=== PATIENT | male | born 1985 | race Caucasian/White ===

== ENCOUNTER 2019-08-11 05:46 | Day surgery (SDC) | payer OTHER ==
[2019-08-08 10:07] VITALS: BMI 30.1
[2019-08-11] MEDS ORDERED: BUPIVACAINE HCL/PF 2.5 MG/ML - 30 ML VIAL IJ ONE (07:36)
[2019-08-11] MEDS ORDERED: PROPOFOL 20 ML ONE ×2 (07:38→07:41)
[2019-08-11] MEDS ORDERED: MIDAZOLAM HCL 2 MG/2 ML SINGLE DOSE VIAL ONE ×2 (07:38)
[2019-08-11] MEDS ORDERED: DEXAMETHASONE SOD PHOSPHATE 4 MG/1 ML VIAL ONE (07:40)
[2019-08-11] MEDS ORDERED: LIDOCAINE HCL/PF 2% SDV 5ML VIAL ONE (07:40)
[2019-08-11] MEDS ORDERED: ONDANSETRON 4 MG/2 ML VIAL ONE ×2 (07:40→09:29)
[2019-08-11] MEDS ORDERED: ceFAZolin SODIUM 1 GM VIAL ONE (07:40)
[2019-08-11] MEDS ORDERED: oxyCODONE HCL 5 MG TABLET PO PRN ×2 (08:34)
[2019-08-11] MEDS ORDERED: ONDANSETRON 4 MG/2 ML VIAL IVPUSH PRN (08:34)
[2019-08-11] MEDS ORDERED: BUPIVACAINE HCL/PF 0.25% (2.5MG/ML) 10 ML VIAL IJ ONE (08:42)
[2019-08-11] MEDS ORDERED: LACTATED RINGERS SOLUTION 1,000 ML IV SCH (08:45)
[2019-08-11] MEDS ORDERED: oxyCODONE HCL 5 MG TABLET ONE ×2 (09:59→11:22)
[2019-08-11 10:53] VITALS: PULSE 59; TEMP 98.1
--- NOTE | 2019-08-11 10:56 | OP ---
DATE OF OPERATION: 08/11/2019 Done at [facility] SURGEON: Rolf Lake MD METAL POURER: BLANCA Leon PREOPERATIVE DIAGNOSIS: Right biceps tear. POSTOPERATIVE DIAGNOSIS: Right biceps tear. PROCEDURE: Reinsertion of distal biceps rupture, right elbow. FINDINGS: Avulsed biceps tendon, right elbow. DESCRIPTION OF PROCEDURE: Informed consent was obtained. Patient was taken to the operating room where the right upper extremity was prepped and draped in sterile fashion. Tourniquet was placed to the upper arm, inflated to 250 mmHg. Horizontal incision was made 2 cm distal to the elbow crease. This was taken down to the fascia where the superficial veins were from the fascia. Incision of the fascia allowed for exploration. The biceps tendon was found to be retracted back to the biceps belly. This was brought out, trimmed of scar tissue, and 2 interlocking No. 2 FiberWire Hooper stitches were placed through this and tied this into the toggle lock system. Soft tissue was cleared from the radial neck insertion of the biceps. The toggle lock system using a combination of guidewires, 7-mm drill, and 4-mm drill to the posterior cortex was used. The wound was then irrigated with copious amounts of irrigation. Toggle lock device was placed through to the posterior cortex and turned 90 degrees locking it in position. It was then tightened bringing the tendon into the bleeding bone bed on the anterior cortex. This was found to be brought into the bone itself. It was then locked into position by tying it in place. Excess suture was removed. Wound was irrigated again. Tourniquet was released. There was no evidence of arterial bleeding. Wound was irrigated once again. A layered closure of 0 Vicryl, 2-0 Vicryl, 3-0 Prolene was performed. Sterile dressing was placed. The patient was transferred to recovery without complication. The PA listed above was present and assisted at surgery. Their presence was absolutely medically necessary for the completion of the procedure. They helped hold the arthroscopy, pass instruments (and implants when indicated) and the procedure could not have been completed without their assistance. ROLF LAKE M.D. [id number]
[2019-08-11 11:39] VITALS: BP 116/54
== END 2019-08-11 12:20 | disposition home or self-care (01) ==
LOC: FASU 05:46
PROVIDERS: ATTEND Orthopaedic Surgery
PROC: 0LM30ZZ Reattachment of Right Upper Arm Tendon, Open Approach (ICD-10-PCS; principal; 2019-08-11 08:09)
DX: M66.821 Spontaneous rupture of other tendons, right upper arm (principal)
CPT/HCPCS: 94760